=== PATIENT | female | born 1960 | race Two or more races ===

== ENCOUNTER 2025-02-13 12:46 | Observation (INO) | payer MEDICAID, SELFPAY ==
--- NOTE | 2025-02-12 08:04 | EKG_ITS ---
[facility] Test Date: 2025-02-12 Pat Name: ADOLPH ONEAL Department: Room: - Gender: Male Studio Coordinator: KIERRA : 1960 Requested By: Damion Wheeler Order Number: [id number] Reading MD: Damion Wheeler Measurements Intervals [place] Rate: 67 P: 58 AL: 155 QRS: -41 QRSD: 106 T: 49 QT: 397 QTc: 422 Interpretive Statements SINUS RHYTHM MARKED LEFT AXIS DEVIATION [QRS AXIS < -30] No previous ECG available for comparison /[id number]
[2025-02-12 09:04] VITALS: BMI 29.4
[2025-02-12 09:49] LABS: Basophils # (Auto) 0.0 Thou/mm3 (0.0-0.2); Basophils % (Auto) 1 % (0-2.5); Eosinophils # (Auto) 0.1 Thou/mm3 (0.0-0.5); Eosinophils % (Auto) 1 % (0-10); Hematocrit 42.4 % (36.0-46.0); Hemoglobin 14.7 g/dL (12.0-16.0); Immature Granulocytes Auto 0.01 Thou/mm3 (0.00-0.00); Lymphocytes # (Auto) 2.1 Thou/mm3 (1.0-4.8); Lymphocytes % (Auto) 49 % (10-50); Mean Corpuscular HGB Conc 34.7 g/dl (31.0-37.0); Mean Corpuscular Hemoglobin 31.7 pg (25.0-35.0); Mean Corpuscular Volume 92 fL (80-100); Monocytes # (Auto) 0.3 Thou/mm3 (0.0-0.8); Monocytes % (Auto) 7 % (0-12); Neutrophils # (Auto) 1.8 Thou/mm3 (1.8-7.7); Neutrophils % (Auto) 42 % (37-80); Nucleated Red Blood Cell # 0.00 Thou/mm3 (0.00-0.00); Nucleated Red Blood Cell % 0 /100 WBC (0); Platelet Count 145 Thou/mm3 (140-440); RDW Standard Deviation 41.1 fL (36.4-46.3); Red Blood Count 4.63 Miln/mm3 (4.00-5.20); White Blood Count 4.4 Thou/mm3 (3.6-11.0)
[2025-02-12 09:58] LABS: INR 1.0 (0.9-1.3); Partial Thromboplastin Time 25.9 Seconds (22.0-36.0); Prothrombin Time 10.2 Seconds (9.0-12.2)
[2025-02-12 10:04] LABS: Alanine Aminotransferase 34 U/L (10-49); Albumin, Serum 4.5 gm/dL (3.4-4.8); Albumin/Globulin Ratio 1.2 (1.2-2.2); Alkaline Phosphatase 102 U/L (46-116); Anion Gap 10 (7-16); Aspartate Amino Transferase 30 U/L (0-34); BUN/Creatinine Ratio 15 Ratio (12-20); Bilirubin,Total 0.7 mg/dL (0.3-1.2); Blood Urea Nitrogen 12 mg/dL (9-23); Calcium 9.6 mg/dL (8.3-10.6); Calcium (Corrected) 9.6 mg/dL (8.5-10.1); Carbon Dioxide 28.0 mMol/L (20.0-31.0); Chloride 105 mMol/L (98-107); Creatinine (Component) 0.8 mg/dL (0.6-1.3); Estimated Creatinine Clearance 52.2 mL/min (>60); Globulin 3.8 gm/dL (2.3-3.5); Glucose 137 mg/dL (74-106); Osmolality,Calculated 286 (275-295); Potassium 3.8 mMol/L (3.4-5.1); Sodium 143 mMol/L (136-145); Total Protein 8.3 gm/dL (5.7-8.2); eGFR > 60 See Note
[2025-02-13] VITALS (9 sets, daily range): BP systolic 107–141; BP diastolic 56–88; PULSE 58–97; RESP 17–20; TEMP 36.1–36.3; O2SAT 95–100; BMI 28.8
--- NOTE | 2025-02-13 08:25 | SUR.PREOP ---
Patient expressed gratitude for prayer before their procedure.
--- NOTE | 2025-02-13 11:54 | SUR.PHASEI ---
1154: Pt. AAOx4, vitals stable, breathing unlabored, no complaint of pain or nausea, x3 sites to ABD CDI, DREW drain in place, report received from MD Masterson and Felix MIDDLETON.
--- NOTE | 2025-02-13 12:33 | ESOP_ITS ---
Date of Procedure 02/13/25 Pre Op Diagnosis Symptomatic cholelithiasis Post Op Diagnosis Same Procedure Laparoscopic cholecystectomy Findings Patient was found to have slightly nodular liver but no definite cirrhosis was seen. Patient had small gallstones with no acute inflammation. Patient had fair amount of bleeding at the liver bed that required hemostatic agent Procedure Description After endotracheal anesthesia was given the patient was placed in supine position and the abdomen was prepped with chloroprep solution and draped in a sterile manner. After time out was performed I injected a few cc of of half percent Marcaine with epinephrine below the umbilicus and I made an incision for about 3 cm in length. The fascia was cleaned and Veress needle was inserted to create a pneumoperitoneum up to 15 mmHg. Then introduced a 12 mm trocar and a 10 mm camera through the fascia and I inspected the intra-abdominal organs as well as the gallbladder and the liver. Another 5 mm trocar was inserted in the epigastric region under direct vision after injecting some local anesthesia. At this time the patient was kept in reverse Trendelenburg position with the left lateral tilt. The third 5 mm trocar was inserted over the mid axillary line under direct vision and a Alec and Gesiria grasper was used to hold the fundus of the gallbladder. The retraction was carried out by the commercial loan assistant moving the fundus of the gallbladder towards the right shoulder of the patient to create enough traction. I placed a another 5 mm trocar in the midaxillary line just lateral to the rectus muscle under direct vision. I used a fenestrated grasper to retract the neck of the gallbladder laterally towards the patient's right hip. The Calot's triangle was exposed and I achieved the critical view of safety as follows: I dissected out the fatty tissue from the hepatocystic triangle and cleared this area. I also dissected inferior and posterior to the gallbladder to identify the cystic duct and the gallbladder wall. Then superiorly I dissected along the cystic plate up to lower one third third of the gallbladder to lift the gallbladder from the liver. At this time I confirmed that only 2 structures entering the gallbladder were cystic artery and the cystic duct. The common duct was seen distally but no dissection was carried ou t around the duct. I did not see any need for operative cholangiogram in this patient. The cystic duct was clipped doubly and then divided and cystic artery was similarly dealt with. Then the gallbladder was removed from the liver bed using Harmonic chris to control the small blood vessels as the dissection proceeded. After I removed the gallbladder there was some bleeding at the liver bed which could not be stopped with cautery. Therefore I used Surgicel powder and then Surgicel gauze to control the bleeding with pressure. Patient also received 2 g of Ancef at this time because there was a small bile leak from the gallbladder. Then a left #15 round Dexter-De La Rosa under the liver bed and brought out through the one of the trocars and anchored to skin with 2-0 silk. Then the gallbladder was from the liver bed completely and delivered through the umbilical port using an Endopouch. The liver bed was coagulated with cautery to obtain satisfactory hemostasis. The trocars were pulled out from the abdominal cavity and the fascia at the umbilical incision was closed with interrupted 0 Ethibond. Subcutaneous tissues was closed with 3-0 chromic and injected a few cc of half percent Marcaine with epinephrine and the skin was closed with interrupted 4-0 nylon stitches at all the trocar sites. Dressing was applied with 2 x 2 and Tegaderm. Patient tolerated the procedure well and returned to recovery room in stable condition. Anesthesia GETA Pathology / specimen Other IVF Infused 1,200 Estimated Blood Loss 150 Condition Stable Disposition PACU Surgeon Haylie Benjamin MD Surgical Staff Operation Date: 02/13/25 10:00 Case Staff Anesthesiologist: Job Masterson RN First Assistant: Aline Blas
--- NOTE | 2025-02-13 12:40 | SUR.PHASEII ---
1240: Pt. AAOx4, vitals stable, breathing unlabored, no complaint of pain or nausea, x3 sites to ABD CDI, DREW drain in place, pt. tolerated sips of water well, gave report to Criselda MIDDLETON prior to transfer to room 372. Family made aware of transfer, pt. transferred with all personal belongings.
[2025-02-13] MEDS: ONDANSETRON INJ 2 MG/ML INJ 2 ML 4 MG IVP (13:48)
[2025-02-13] MEDS: SODIUM CHLORIDE 0.9% 1000 ML 1,000 ML 50 ML IV (13:49)
[2025-02-13] MEDS: MORPHINE SULF INJ 4 MG/ML VIAL IVP (13:49)
[2025-02-13 17:43] LABS: Basophils # (Auto) 0.0 Thou/mm3 (0.0-0.2); Basophils % (Auto) 0 % (0-2.5); Eosinophils # (Auto) 0.0 Thou/mm3 (0.0-0.5); Eosinophils % (Auto) 0 % (0-10); Hematocrit 40.1 % (36.0-46.0); Hemoglobin 14.0 g/dL (12.0-16.0); Immature Granulocytes Auto 0.01 Thou/mm3 (0.00-0.00); Lymphocytes # (Auto) 0.7 Thou/mm3 (1.0-4.8); Lymphocytes % (Auto) 17 % (10-50); Mean Corpuscular HGB Conc 34.9 g/dl (31.0-37.0); Mean Corpuscular Hemoglobin 31.8 pg (25.0-35.0); Mean Corpuscular Volume 91 fL (80-100); Monocytes # (Auto) 0.1 Thou/mm3 (0.0-0.8); Monocytes % (Auto) 3 % (0-12); Neutrophils # (Auto) 3.3 Thou/mm3 (1.8-7.7); Neutrophils % (Auto) 80 % (37-80); Nucleated Red Blood Cell # 0.00 Thou/mm3 (0.00-0.00); Nucleated Red Blood Cell % 0 /100 WBC (0); Platelet Count 119 Thou/mm3 (140-440); RDW Standard Deviation 40.6 fL (36.4-46.3); Red Blood Count 4.40 Miln/mm3 (4.00-5.20); White Blood Count 4.1 Thou/mm3 (3.6-11.0)
[2025-02-13] MEDS: ceFAZolin/D5W 2 GM IV 2 GM/100 ML BAG IV (18:26)
[2025-02-14] VITALS: BP 127/66; PULSE 58; RESP 16; TEMP 36.1; O2SAT 97
[2025-02-14 04:00] VITALS: BP 111/70; PULSE 61; RESP 16; TEMP 36.2; O2SAT 95
[2025-02-14] MEDS: ceFAZolin/D5W 2 GM IV 2 GM/100 ML BAG IV (05:12)
[2025-02-14 05:43] LABS: Basophils # (Auto) 0.0 Thou/mm3 (0.0-0.2); Basophils % (Auto) 0 % (0-2.5); Eosinophils # (Auto) 0.0 Thou/mm3 (0.0-0.5); Eosinophils % (Auto) 0 % (0-10); Hematocrit 37.8 % (36.0-46.0); Hemoglobin 13.3 g/dL (12.0-16.0); Immature Granulocytes Auto 0.02 Thou/mm3 (0.00-0.00); Lymphocytes # (Auto) 1.8 Thou/mm3 (1.0-4.8); Lymphocytes % (Auto) 23 % (10-50); Mean Corpuscular HGB Conc 35.2 g/dl (31.0-37.0); Mean Corpuscular Hemoglobin 32.4 pg (25.0-35.0); Mean Corpuscular Volume 92 fL (80-100); Monocytes # (Auto) 0.6 Thou/mm3 (0.0-0.8); Monocytes % (Auto) 8 % (0-12); Neutrophils # (Auto) 5.6 Thou/mm3 (1.8-7.7); Neutrophils % (Auto) 69 % (37-80); Nucleated Red Blood Cell # 0.00 Thou/mm3 (0.00-0.00); Nucleated Red Blood Cell % 0 /100 WBC (0); Platelet Count 116 Thou/mm3 (140-440); RDW Standard Deviation 41.4 fL (36.4-46.3); Red Blood Count 4.11 Miln/mm3 (4.00-5.20); White Blood Count 8.1 Thou/mm3 (3.6-11.0)
[2025-02-14 06:00] LABS: Alanine Aminotransferase 71 U/L (10-49); Albumin, Serum 3.8 gm/dL (3.4-4.8); Alkaline Phosphatase 75 U/L (46-116); Aspartate Amino Transferase 69 U/L (0-34); Bilirubin,Direct 0.3 mg/dL (0.0-0.3); Bilirubin,Total 0.9 mg/dL (0.3-1.2); Total Protein 6.9 gm/dL (5.7-8.2)
[2025-02-14 08:00] VITALS: BP 125/74; PULSE 62; RESP 18; TEMP 36.1; O2SAT 94
--- NOTE | 2025-02-14 11:05 | PC.SS ---
This is 64-year-old, , single female who presented to the hospital for a cholecystectomy. Patient appeared alert and oriented to self, place and situation. Patient was able to verify her physical address ([address], [place], [place]) and phone number. Patient reported that she resides at home with her daughter, Susie and family. Patient is independent with all ADLs, no DME use. Patient assigned her daughter, Susie as her primary medical decision maker. Patient's PCP is Connie Reynoso. When medically clear, patient will return to home; family will provide transportation. Discharge plan: home, family will provide transportation.
--- NOTE | 2025-02-14 11:46 | PD.SURPROG ---
Documentation for date of: 02/14/25 Subjective Subjective Narrative: Patient is stable after laparoscopic cholecystectomy yesterday. She does not have any significant complaints and her vital signs are stable Exam Vital Signs Temp Pulse Resp BP Pulse Ox O2 Del Method O2 Flow Rate 97.0 F 62 18 125/74 94 L Room Air 2 02/14/25 08:00 02/14/25 08:00 02/14/25 08:00 02/14/25 08:00 02/14/25 08:00 02/14/25 08:00 02/13/25 12:04 Routine Abdominal Exam Comments: Abdominal examination showed very minimal drainage in the Dexter-De La Rosa Results Results: Laboratory Laboratory Narrative: Laboratory exam shows stable hemoglobin Assessment & Plan Assessment Additional comments: Impression: No evidence of bleeding under observation Plan Plan: We shall DC the drain and discharge patient today PROCEDURES: Procedures Laparoscopic cholecystectomy
== END 2025-02-14 13:33 | disposition home or self-care (01) ==
LOC: S2EX 13:08 → S3SX 13:14
PROVIDERS: Admitting Provider Surgery; PCP Physician Assistant Medical; Referring Provider Surgery; Visit Provider Surgery
PROC: 0FT44ZZ Resection of Gallbladder, Percutaneous Endoscopic Approach (ICD-10-PCS; CPT 47562; principal; 2025-02-13 09:45)
DX: K80.20 Calculus of gallbladder without cholecystitis without obstruction (principal); K80.10 Calculus of gallbladder with chronic cholecystitis without obstruction; Z01.810 Encounter for preprocedural cardiovascular examination; K76.89 Other specified diseases of liver; K21.9 Gastro-esophageal reflux disease without esophagitis
CPT/HCPCS: 47562; 36415; 80053; 80076; 85025; 85610; 85730; 93005; 96365; 96375; A4217; A4649; G0378; J0131; J0461; J0689; J1100; J1885; J2250; J2270; J2405; J2704; J3010; J3490; J7030